=== PATIENT | male | born 1965 | race African-American/Black ===

== ENCOUNTER 2019-04-02 15:23 | Emergency (ER) | payer OTHER ==
[2019-04-02 15:43] VITALS: RESP 18; TEMP 98.3
--- NOTE | 2019-04-02 17:27 | XR ---
EXAMINATION TYPE: XR wrist complete RT, XR forearm RT DATE OF EXAM: 04/02/2019 CLINICAL HISTORY: pain TECHNIQUE: Frontal and lateral images of the right forearm are obtained. COMPARISON: None. FINDINGS: There is no acute fracture/dislocation evident. The joint spaces appear within normal limi ts. The overlying soft tissue appears unremarkable. IMPRESSION: There is no acute fracture or dislocation. ICD 10 NO FRACTURE, INITIAL EVALUATION EXAMINATION TYPE: XR wrist complete RT, XR forearm RT DATE OF EXAM: 04/02/2019 CLINICAL HISTORY: pain TECHNIQUE: Frontal, lateral and oblique images of the right wrist are obtained. COMPARISON: None. FINDINGS: There is no acute fracture/dislocation evident. Severe joint space narrowing radiocarpal joint space. Soft tissue swelling dorsum of the wrist. IMPRESSION: There is no acute fracture or dislocation seen. ICD 10 NO FRACTURE, INITIAL EVALUATION
--- NOTE | 2019-04-02 18:00 | ED ---
Upper Extremity HPI - General Chief Complaint: Extremity Injury, Upper Stated Complaint: Right arm swollen Time Seen by Provider: 04/02/19 17:08 Source: patient Mode of arrival: ambulatory Limitations: no limitations - History of Present Illness Initial Comments: Patient is a 54-year-old male presenting to emergency Department with complaints of right wrist pain after falling on it 2 days ago. Patient states he was moving some boxes and slipped on some ice and fell on the top of his right wrist. He denies any other injuries from this fall. He denies any previous surgeries injuries to the right wrist. He has no other complaints today. Upon arrival to the ER his vitals are stable. - Related Data Allergies Allergy/AdvReac Type Severity Reaction Status Date / Time No Known Allergies Allergy Verified 04/02/19 15:40 Review of Systems ROS Statement: Those systems with pertinent positive or pertinent negative responses have been documented in the HPI. ROS Other: All systems not noted in ROS Statement are negative. Past Medical History Past Medical History: No Reported History History of Any Multi-Drug Resistant Organisms: None Reported Past Surgical History: No Surgical Hx Reported Past Psychological History: No Psychological Hx Reported Smoking Status: Current every day smoker Past Alcohol Use History: None Reported Past Drug Use History: None Reported General Exam - General Exam Comments Initial Comments: GENERAL: Well-appearing, well-nourished and in no acute distress. HEAD: Atraumatic, normocephalic. EYES: Pupils equal round and reactive to light, extraocular movements intact, sclera anicteric, conjunctiva are normal. ENT: Moist mucous membranes. NECK: Normal range of motion, supple without lymphadenopathy or JVD. LUNGS: Breath sounds clear to auscultation bilaterally and equal. No wheezes rales or rhonchi. HEART: Regular rate and rhythm without murmurs, rubs or gallops. ABDOMEN: Soft, nontender, normoactive bowel sounds. No guarding, no rebound. No masses appreciated. EXTREMITIES: Tender to palpation over the head of the ulna, mild swelling present. Pain with supination, as well as wrist flexion and extension. Neurovascular intact. No pain of the right he and or right forearm other than the distal ulna area. No clubbing or cyanosis. NEUROLOGICAL: Normal speech, normal gait. PSYCH: Normal mood, normal affect. SKIN: Warm, Dry, normal turgor, no rashes or lesions noted. Limitations: no limitations Course Vital Signs 04/02/19 15:41 Temperature 98.3 F Pulse Rate 80 Respiratory 18 Rate Blood Pressure 141/81 O2 Sat by Pulse 98 Oximetry Medical Decision Making - Medical Decision Making Patient is a 54-year-old male presenting with right wrist pain after falling 2 days ago. X-rays reveal no acute fractures or dislocations were with appears to be an old injury over the head of the ulna. Patient was placed in a short arm splint. He will follow up with orthopedics. He is in agreement with this plan of care. Case discussed with Dr. Gee. Disposition Clinical Impression: Right wrist pain Disposition: HOME SELF-CARE Condition: Stable Instructions (If sedation given, give patient instructions): Wrist Injury (ED) Additional Instructions: Please return to the Emergency Department if symptoms worsen or any other concerns. May use ice on the wrist and ibuprofen for pain relief. Follow-up with orthopedics as discussed. Is patient prescribed a controlled substance at d/c from ED?: No Referrals: Anirudh Tellez MD [Primary Care Provider] - 1-2 days Trenton Gonzalez DO [Medical Doctor] - 1-2 days
[2019-04-02 18:13] VITALS: BP 106/81; PULSE 67
== END 2019-04-02 18:12 | disposition home or self-care (01) ==
LOC: EC 15:23
DX: M25.531 Pain in right wrist (principal); F17.200 Nicotine dependence, unspecified, uncomplicated; W00.0XXA Fall on same level due to ice and snow, initial encounter
CPT/HCPCS: 29125; 99283

== ENCOUNTER 2022-06-12 09:01 | Emergency (ER) | payer BC, OTHER ==
[2022-06-12] MEDS ORDERED: MORPHINE SULFATE 4 MG/ML SYRINGE IM STA (09:56)
--- NOTE | 2022-06-12 10:14 | ED ---
General Adult HPI - General Chief complaint: Neck Pain/Injury Stated complaint: neck pain Time Seen by Provider: 06/12/22 09:31 Source: patient Mode of arrival: ambulatory Limitations: no limitations - History of Present Illness Initial comments: Dictation was produced using [email or web address] dictation software. please excuse any grammatical, word or spelling errors. Chief Complaint: 57-year-old no presents with acute on chronic neck pain History of Present Illness: 57-year-old male presents emergency department for acute on chronic neck pain. Patient states he has that pain for one year. Has never had imaging on his neck. The last 3-4 days he has had worsening of his neck symptoms. Went to [facility]. The given an injection told that his symptoms were secondary to muscle spasms sent them home. Patient has any numbness and paresthesias to arms or legs. Denies any injury to the neck. The ROS documented in this emergency department record has been reviewed and confirmed by me. Those systems with pertinent positive or negative responses have been documented in the HPI. All other systems are other negative and/or noncontributory. - Related Data Previous Rx's Medication Instructions Recorded oxyCODONE-APAP 10-325MG [Percocet 1 tab PO Q4HR PRN 3 Days #18 tab 06/12/22 10-325 mg] Allergies Allergy/AdvReac Type Severity Reaction Status Date / Time No Known Allergies Allergy Verified 06/12/22 09:18 Review of Systems ROS Statement: Those systems with pertinent positive or pertinent negative responses have been documented in the HPI. ROS Other: All systems not noted in ROS Statement are negative. Past Medical History Past Medical History: Hypertension History of Any Multi-Drug Resistant Organisms: None Reported Past Surgical History: No Surgical Hx Reported Past Psychological History: No Psychological Hx Reported Smoking Status: Current every day smoker Past Alcohol Use History: Occasional Past Drug Use History: None Reported General Exam - General Exam Comments Initial Comments: PHYSICAL EXAM: General Impression: Alert and oriented x3, not in acute distress HEENT: Normocephalic atraumatic, extra-ocular movements intact, pupils equal and reactive to light bilaterally, mucous membranes moist, bogginess to the paraspinal muscular tissues at the lower cervical spine posteriorly Cardiovascular: Heart regular rate and rhythm Chest: Able to complete full sentences, no retractions, no tachypnea Musculoskeletal: Pulses present and equal in all extremities, no peripheral edema Motor: no focal deficits noted Neurological: CN II-XII grossly intact, no focal motor or sensory deficits noted Skin: Intact with no visualized rashes Psych: Normal affect and mood Limitations: no limitations Course Vital Signs 06/12/22 09:16 Temperature 98 F Pulse Rate 78 Respiratory 18 Rate Blood Pressure 174/118 O2 Sat by Pulse 96 Oximetry Medical Decision Making - Medical Decision Making Was pt. sent in by a medical professional or institution (DANAE [place]rona, RN ENT, urgent care, hospital, or [facility]...) When possible be specific @ -No Did you speak to anyone other than the patient for history (EMS, parent, family, police, friend...)? What history was obtained from this source @ -No Did you review nursing and triage notes (agree or disagree)? Why? @ -I reviewed and agree with nursing and triage notes Were old charts reviewed (outside hosp., previous admission, EMS record, old EKG, old radiological studies, urgent care reports/EKG's, [facility] records)? Report findings @ -No old charts were reviewed Differential Diagnosis (chest pain, altered mental status, abdominal pain women, abdominal pain men, vaginal bleeding, musculoskeletal, weakness, fever, dyspnea, syncope, headache, dizziness, GI bleed, back pain, seizure, CVA, palpatations, mental health)? @ -Neck strain, muscle spasm, cervical spinal fracture EKG interpreted by me (3pts min.). @ -None done X-rays interpreted by me (1pt min.). @ -None done CT interpreted by me (1pt min.). @ -Diffuse degenerative disc disease in the cervical spine U/S interpreted by me (1pt. min.). @ -None done What testing was considered but not performed or refused? (CT, X-rays, U/S, labs)? Why? @ -None What meds were considered but not given or refused? Why? @ -None Did you discuss the management of the patient with other professionals ( professionals i.e. DANAE [place], RN ENT, lab, RT, psych nurse, director social service, street light inspector, teacher, tax revenue officer, case worker)? Give summary @ -No Was smoking cessation discussed for >3mins.? @ -No Was critical care preformed (if so, how long)? @ -No Were there social determinants of health that impacted care today? How? (Homelessness, low income, unemployed, alcoholism, drug addiction, transportation, low edu. Level, literacy, decrease access to med. care, detention, rehab)? @ -No Was there de-escalation of care discussed even if they declined (Discuss DNR or withdrawal of care, Hospice)? DNR status @ -No What co-morbidities impacted this encounter? (DM, HTN, Smoking, COPD, CAD, Cancer, CVA, ARF, Chemo, Hep., AIDS, mental health diagnosis, sleep apnea, morbid obesity)? @ -None Was patient admitted / discharged? Hospital course, mention meds given and route, prescriptions, significant lab abnormalities, going to OR and other pertinent info. @ -57-year-old male presents emergency Department with acute on chronic neck pain. Patient has never had prior imaging. CT was ordered showing multilevel degenerative disc with very degrees of central canal stenosis and foraminal encroachment. Patient given intramuscular analgesia. Patient does not have any neurologic complaints or neurologic physical exam findings. Patient given referral to equipment validation specialist. Patient given prescription for oral analgesics. Undiagnosed new problem with uncertain prognosis? @ -No Drug Therapy requiring intensive monitoring for toxicity (Heparin, Nitro, Insulin, Cardizem)? @ -No Were any procedures done? @ -No Diagnosis/symptom? Acute, or Chronic, or Acute on Chronic? Uncomplicated (without systemic symptoms) or Complicated (systemic symptoms)? @ -1. Acute on Chronic cervical neck pain Side effects of treatment? @ -No Exacerbation, Progression, or Severe Exacerbation? @ -No Poses a threat to life or bodily function? How? (Chest pain, [place], [place], pneumonia, PE, COPD, DKA, ARF, appy, cholecystitis, CVA, Diverticulitis, Homicidal, Suicidal, threat to staff... and all critical care pts) @ -yes Disposition Clinical Impression: Neck pain Disposition: HOME SELF-CARE Condition: Fair Instructions (If sedation given, give patient instructions): Cervical Strain (ED) Prescriptions: oxyCODONE-APAP 10-325MG [Percocet 10-325 mg] 1 tab PO Q4HR PRN 3 Days #18 tab PRN Reason: Pain Is patient prescribed a controlled substance at d/c from ED?: Yes If prescribed controlled substance>3 days was MAPS reviewed?: Prescribed <3 Days Referrals: Zayda Rodriguez DO [Primary Care Provider] - 1-2 days Yohan Ceja DO [Doctor of Osteopathic Medicine] - 1-2 days Time of Disposition: 10:53
--- NOTE | 2022-06-12 10:40 | CT ---
EXAMINATION TYPE: CT cervical spine wo con DATE OF EXAM: 06/12/2022 COMPARISON: HISTORY: Neck pain and stiffness x1yr CT DLP: 409.[address] of the cervical spine was performed with bone and soft tissue window settings submitted . Coronal and sagittal reconstruction is obtained. There is normal alignment and prevertebral soft tissues. I do not see evidence for fracture or sublu xation. C2-3: Within normal limits C3-4: Vacuum disc noted. Posterior disc bulge. No evidence for obvious herniation or central stenosis . Degenerative change of the cervical apophyseal joints resulting in bilateral neural foraminal encro achment. C4-5: Mild degenerative disc space narrowing. Mild posterior disc bulge. No herniation protrusion or foraminal encroachment. C5-6: Severe disc desiccation. Posterior disc bulge greatest paracentrally and to the right with part ial encapsulating spur. Effacement ventral thecal sac with at least mild central stenosis. Right grea ter than left neural foraminal encroachment. Ventral spondylosis. C6-7: Vacuum disc seen. Moderate posterior disc bulge. Disc herniation difficult to exclude. At least mild central stenosis. Left greater than right neural foraminal encroachment. Ventral spondylosis. C7-T1: Within normal limits IMPRESSION: 1. Multilevel degenerative disc disease and varying degrees of central stenosis and foraminal encroac hment.
[2022-06-12 11:02] VITALS: BP 161/111; PULSE 81; RESP 16; TEMP 97.8
== END 2022-06-12 11:01 | disposition home or self-care (01) ==
LOC: EC 09:01
DX: M54.2 Cervicalgia (principal); I10 Essential (primary) hypertension; F17.200 Nicotine dependence, unspecified, uncomplicated
CPT/HCPCS: 72125; 99284; 96372; J2270

== ENCOUNTER → 2022-07-28 | Outpatient (CLI) | payer OTHER ==
--- NOTE | 2022-07-30 09:16 | MR ---
EXAMINATION TYPE: MR cervical spine wo con DATE OF EXAM: 07/28/2022 8:07 AM COMPARISON: NONE HISTORY: Neck pain x 6 months, no trauma. Multiplanar MultiSpin echo imaging of the cervical spine was performed. Comparison: none C2-C3: No evidence for degenerative disc disease. No disc bulge/herniation or protrusion. No Canal stenosis. Foramina are patent bilaterally. C3-C4: Moderate disc desiccation posterior disc bulge and effacement of the ventral thecal sac. There is constriction of the thecal sac with mild central stenosis. Degenerative change of the cervical ap ophyseal joints is ultimately in moderate bilateral neural foraminal encroachment. C4-C5: Moderate disc desiccation with mild posterior disc bulge. No evidence for herniation or centra l stenosis at this level. Degenerative change of the cervical apophyseal joints with right greater th an left foraminal encroachment. C5-C6: Severe disc desiccation with subligamentous disc herniation. Effacement ventral thecal sac wit h moderate central stenosis and changes of compressive myelopathy. Moderate to severe bilateral neura l foraminal encroachment. C6-C7: Severe disc desiccation with subligamentous disc herniation. Effacement ventral thecal sac wit h moderate central stenosis and changes of compressive myelopathy. Moderate to severe bilateral neura l foraminal encroachment. C7-T1: No evidence for degenerative disc disease. No disc bulge/herniation or protrusion. No Canal stenosis. Foramina are patent bilaterally. Cervical segments are intact. There is normal alignment. Cervical spinal cord is of normal signal. Craniovertebral junction relationships are within normal limits. Degenerative endplate marrow change s. Ventral spondylosis. IMPRESSION: 1. Multilevel degenerative disc disease with multilevel central stenosis and foraminal encroachment a s outlined above. 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
== END | disposition home or self-care (01) ==
LOC: RADMRIMAIN 06:20
PROVIDERS: ATTEND Orthopaedic Surgery Orthopaedic Surgery of the Spine
DX: M47.812 Spondylosis without myelopathy or radiculopathy, cervical region (principal); M50.322 Other cervical disc degeneration at C5-C6 level; M25.78 Osteophyte, vertebrae; F17.218 Nicotine dependence, cigarettes, with other nicotine-induced disorders; M99.71 Connective tissue and disc stenosis of intervertebral foramina of cervical region
CPT/HCPCS: 72141

== ENCOUNTER 2023-07-05 10:33 | Emergency (ER) | payer OTHER ==
--- NOTE | 2023-07-05 10:47 | ED ---
Neck Injury/Pain HPI - General Chief Complaint: Neck Pain/Injury Stated Complaint: Neck pain Time Seen by Provider: 07/05/23 10:48 Source: patient, RN notes reviewed Mode of arrival: ambulatory Limitations: no limitations - History of Present Illness Initial Comments: This is a 58-year-old male with a history of hypertension who presents to the emergency department chief complaint of cervical neck pain over the last 2 weeks. The pain is worse on the left-hand side and with full neck flexion. He denies upper motor neuron deficits such as decrease in muscle strength, parasthesias, weakness, headaches. Denies shortness of breath, chest pain or pressure, palpitations, dizziness, lightheadedness, fatigue. He denies a history of cervical neck trauma, motor vehicle accidents, or previous surgical operations. Patient states that he had symptoms similar to this episode a year ago where he presented to the emergency department and he was given a p rescription for pain medication and referral to a migration specialist. States that the pain specialist performed a injection to his neck and has not followed up since due to lack of health insurance after. - Related Data Previous Rx's Medication Instructions Recorded oxyCODONE-APAP 10-325MG [Percocet 1 tab PO Q4HR PRN 3 Days #18 tab 06/12/22 10-325 mg] Cyclobenzaprine [Flexeril] 10 mg PO TID PRN #15 tab 07/05/23 HYDROcodone/APAP 10-325MG [[place] 1 tab PO Q6HR PRN 3 Days #12 tab 07/05/23 10-325] Allergies Allergy/AdvReac Type Severity Reaction Status Date / Time No Known Allergies Allergy Verified 07/05/23 10:41 Review of Systems ROS Statement: Those systems with pertinent positive or pertinent negative responses have been documented in the HPI. ROS Other: All systems not noted in ROS Statement are negative. Past Medical History Past Medical History: Hypertension History of Any Multi-Drug Resistant Organisms: None Reported Past Surgical History: No Surgical Hx Reported Past Psychological History: No Psychological Hx Reported Smoking Status: Current every day smoker Past Alcohol Use History: Occasional Past Drug Use History: None Reported General Exam Limitations: no limitations General appearance: alert, in no apparent distress Head exam: Present: atraumatic, normocephalic, normal inspection Eye exam: Present: normal appearance, PERRL, EOMI. Absent: scleral icterus, conjunctival injection, periorbital swelling ENT exam: Present: normal exam, mucous membranes moist Neck exam: Present: tenderness, other (unable to assess full ROM due to pain, pain worse with rotation). Absent: normal inspection, full ROM Respiratory exam: Present: normal lung sounds bilaterally. Absent: respiratory distress, wheezes, rales, rhonchi, stridor Cardiovascular Exam: Present: regular rate, normal rhythm, normal heart sounds. Absent: systolic murmur, diastolic murmur, rubs, gallop, clicks GI/Abdominal exam: Present: soft, normal bowel sounds. Absent: distended, tenderness, guarding, rebound, rigid Extremities exam: Present: normal inspection, full ROM, normal capillary refill. Absent: tenderness, pedal edema, joint swelling, calf tenderness Back exam: Present: normal inspection Neurological exam: Present: alert, oriented X3, CN II-XII intact Psychiatric exam: Present: normal affect, normal mood Skin exam: Present: warm, dry, intact, normal color. Absent: rash Course Vital Signs 07/05/23 07/05/23 10:35 11:41 Temperature 98.4 F Pulse Rate 95 72 Respiratory 18 18 Rate Blood Pressure 155/116 128/86 O2 Sat by Pulse 98 94 L Oximetry Medical Decision Making - Medical Decision Making Was pt. sent in by a medical professional or institution ([facility]NAE [place], INSTRUCTOR CREELER, urgent care, hospital, or [facility]...) When possible be specific @ -No Did you speak to anyone other than the patient for history (EMS, parent, family, police, friend...)? What history was obtained from this source @ -No Did you review nursing and triage notes (agree or disagree)? Why? @ -I reviewed and agree with nursing and triage notes Were old charts reviewed (outside hosp., previous admission, EMS record, old EKG, old radiological studies, urgent care reports/EKG's, [facility] records)? Report findings @Patient's previous visit from May 2022 reviewed where he presented with similar symptoms. CT of the neck was ordered at this time which revealed disc degeneration and changes of the cervical spine with no red flag findings. Differential Diagnosis (chest pain, altered mental status, abdominal pain women, abdominal pain men, vaginal bleeding, weakness, fever, dyspnea, syncope, headache, dizziness, GI bleed, back pain, seizure, CVA, palpatations, mental health, musculoskeletal)? @ -Differential Musculoskeletal Muscular strain, contusion, ligament sprain, fracture, arthritis, septic arthritis, bursitis, cellulitis, muscle spasm, nerve compression, DVT, arterial occlusion, herpes zoster, electrolyte abnormality, tumor.... This is not meant to be in all inclusive list EKG interpreted by me (3pts min.). @ -None X-rays interpreted by me (1pt min.). @ -X-rays ordered of the left foot and ankle reveal a small lucency through the base of the fifth metatarsal possible avulsion fracture. X-ray of the C-spine reveals no obvious malalignment, moderate to severe disc/endplate degenerative changes at C5-C6 and C6-C7. Moderate bony neuroforaminal narrowing of both sides at C3-C4. CT interpreted by me (1pt min.). @ -None done U/S interpreted by me (1pt. min.). @ -None done What testing was considered but not performed or refused? (CT, X-rays, U/S, labs)? Why? @ -None What meds were considered but not given or refused? Why? @ -None Did you discuss the management of the patient with other professionals (professionals i.e. , PA, INSTRUCTOR CREELER, lab, RT, psych nurse, professor of social work, custom seamstress, teacher, penal officer, case filler)? Give summary @ -No Was smoking cessation discussed for >3mins.? @ -No Was critical care preformed (if so, how long)? @ -No Were there social determinants of health that impacted care today? How? (Homelessness, low income, unemployed, alcoholism, drug addiction, transportation, low edu. Level, literacy, decrease access to med. care, penitentiary, rehab)? @ -No Was there de-escalation of care discussed even if they declined (Discuss DNR or withdrawal of care, Hospice)? DNR status @ -No What co-morbidities impacted this encounter? (DM, HTN, Smoking, COPD, CAD, Cancer, CVA, ARF, Chemo, Hep., AIDS, mental health diagnosis, sleep apnea, morbid obesity)? @ -None Was patient admitted / discharged? Hospital course, mention meds given and route, prescriptions, significant lab abnormalities, going to OR and other pertinent info. @ -8-year-old male with cervical neck pain. On physical examination there are no neurological deficits of the upper extremities or loss of shoulder function. Patient is neurovascularly intact. Question with patient at bedside, states that he followed up with a migration specialist last year after this first incident where he was provided with a shot into his neck. States that he has not followed up afterwards due to losing his health insurance. This time patient will be provided with muscle relaxer and a x-ray will be ordered to determine if there is any acute deficits. Patient is agree with his plan. On reevaluation states that his neck is still painful and is requesting further medication therefore Dilaudid ordered. Reviewed patient's x-ray findings with him that there are no acute changes compared to previous imaging. Recommend patient follows up with his migration specialist for further evaluation and possible repeat injection of the neck. Patient will be provided with outpatient prescription for muscle relaxer and pain medication as needed. All questions answered at bedside. Patient stable for discharge. Strict return parameters discussed with the patient. Plan discussed with Dr. Angeles Undiagnosed new problem with uncertain prognosis? @ -No Drug Therapy requiring intensive monitoring for toxicity (Heparin, Nitro, Insulin, Cardizem)? @ -No Were any procedures done? @ -No Diagnosis/symptom? @ -cervical neck pain, cervical neck strain Acute, or Chronic, or Acute on Chronic? @ -Acute Uncomplicated (without systemic symptoms) or Complicated (systemic symptoms)? @ -uncomplicated Side effects of treatment? @ -No Exacerbation, Progression, or Severe Exacerbation? @ -No Poses a threat to life or bodily function? How? (Chest pain, [place], [place], pneumonia, PE, COPD, DKA, ARF, appy, cholecystitis, CVA, Diverticulitis, Homicidal, Suicidal, threat to staff... and all critical care pts) @ -No Disposition Clinical Impression: Cervical pain (neck), Strain of neck Narrative: Please return to the Emergency Department if symptoms worsen or any other concerns. Follow-up with orthopedic migration specialist for further evaluation. Take pain medication with relaxers as needed. Disposition: HOME SELF-CARE Condition: Good Instructions (If sedation given, give patient instructions): Cervical Strain (ED) Prescriptions: Cyclobenzaprine [Flexeril] 10 mg PO TID PRN #15 tab PRN Reason: Muscle Spasm HYDROcodone/APAP 10-325MG [[place] 10-325] 1 tab PO Q6HR PRN 3 Days #12 tab PRN Reason: Pain Is patient prescribed a controlled substance at d/c from ED?: Yes When asked, does pt state using other controlled substances?: No If prescribed controlled substance>3 days was MAPS reviewed?: Prescribed <3 Days Referrals: Zayda Rodriguez DO [Primary Care Provider] - 1-2 days Time of Disposition: 12:34
[2023-07-05 11:16] VITALS: RESP 18; TEMP 98.4
[2023-07-05] MEDS: ORPHENADRINE 30 MG/ML 2 ML VIAL IM STA (11:43)
[2023-07-05 12:10] VITALS: BP 128/86; PULSE 72
--- NOTE | 2023-07-05 12:23 | XR ---
EXAMINATION TYPE: XR cervical spine comp DATE OF EXAM: 07/05/2023 COMPARISON: None HISTORY: 58-year-old male with neck pain, muscle spasm TECHNIQUE: 6 views FINDINGS: Patient's neck is flexed. No predental space widening or prevertebral soft tissue swelling. Moderate to severe disc/endplate degenerative change C5-C6 and C6-C7 with bulky anterior and plate spondylosis . Patient's shoulders partially obscure the cervicothoracic junction. No obvious malalignment on the swimmer's view. Normal odontoid view. Variable mild bony neuroforaminal narrowing throughout on both sides. More moderate on both sides at C3-C4. IMPRESSION: 1. The patient's neck is flexed. No obvious malalignment though there is some limitation in assessmen t of the cervicothoracic junction. 2. There may be moderate to severe disc/endplate degenerative change at C5-C6 and C6-C7. 3. No prevertebral soft tissue swelling. 4. Moderate bony neuroforaminal narrowing on both sides at C3-C4.
== END 2023-07-05 12:48 | disposition home or self-care (01) ==
LOC: EC 10:33
DX: S16.1XXA Strain of muscle, fascia and tendon at neck level, initial encounter (principal); M48.02 Spinal stenosis, cervical region; F17.200 Nicotine dependence, unspecified, uncomplicated; X58.XXXA Exposure to other specified factors, initial encounter
CPT/HCPCS: 72050; 99284; 96372; J2360

== ENCOUNTER 2024-01-07 11:59 | Emergency (ER) | payer OTHER ==
[2024-01-07 12:11] VITALS: BP 140/93; PULSE 92; RESP 18; TEMP 97.3
--- NOTE | 2024-01-07 12:26 | ED ---
General Adult HPI - General Chief complaint: Dental/Oral Stated complaint: Oral infection, swelling Time Seen by Provider: 01/07/24 12:15 Source: patient, RN notes reviewed, old records reviewed Mode of arrival: ambulatory Limitations: no limitations - History of Present Illness Initial comments: 58 yo male presenting for evaluation of facial swelling and drainage from the right upper mandible. Patient states that just prior to arrival he noted some drainage with blood from the previous infected tooth. Denies history of diabetes. He denies fever. He was concerned due to the bleeding. - Related Data Previous Rx's Medication Instructions Recorded oxyCODONE-APAP 10-325MG [Percocet 1 tab PO Q4HR PRN 3 Days #18 tab 06/12/22 10-325 mg] Cyclobenzaprine [Flexeril] 10 mg PO TID PRN #15 tab 07/05/23 HYDROcodone/APAP 10-325MG [[place] 1 tab PO Q6HR PRN 3 Days #12 tab 07/05/23 10-325] Amoxic-Pot Clav 875-125Mg 1 tab PO Q12HR 10 Days #20 tab 01/07/24 [Augmentin 875-125] Allergies Allergy/AdvReac Type Severity Reaction Status Date / Time No Known Allergies Allergy Verified 07/05/23 10:41 Review of Systems ROS Statement: Those systems with pertinent positive or pertinent negative responses have been documented in the HPI. ROS Other: All systems not noted in ROS Statement are negative. Past Medical History Past Medical History: Hypertension History of Any Multi-Drug Resistant Organisms: None Reported Past Surgical History: No Surgical Hx Reported Past Psychological History: No Psychological Hx Reported Smoking Status: Current every day smoker Past Alcohol Use History: Occasional Past Drug Use History: None Reported General Exam Limitations: no limitations General appearance: alert, in no apparent distress Head exam: Present: atraumatic, normocephalic Eye exam: Present: normal appearance, PERRL ENT exam: Present: other (Facial swelling on the right, poor dentition, draining dental abscess right premolar) Respiratory exam: Present: normal lung sounds bilaterally. Absent: respiratory distress, wheezes Cardiovascular Exam: Present: regular rate, normal rhythm GI/Abdominal exam: Present: soft. Absent: distended, tenderness Extremities exam: Present: normal inspection, normal capillary refill Neurological exam: Present: alert, oriented X3 Psychiatric exam: Present: normal affect, normal mood Course Vital Signs 01/07/24 12:10 Temperature 97.3 F L Pulse Rate 92 Respiratory 18 Rate Blood Pressure 140/93 O2 Sat by Pulse 98 Oximetry Medical Decision Making - Medical Decision Making Was pt. sent in by a medical professional or institution ([facility]E [place], ORDER MAKE UP CLERK, urgent care, hospital, or group home...) When possible be specific @ -No Did you speak to anyone other than the patient for history (EMS, parent, family, police, friend...)? What history was obtained from this source @ -No Did you review nursing and triage notes (agree or disagree)? Why? @ -I reviewed and agree with nursing and triage notes Were old charts reviewed (outside hosp., previous admission, EMS record, old EKG, old radiological studies, urgent care reports/EKG's, group home records)? Report findings @ -No old charts were reviewed Differential Diagnosis: facial cellulitis, dental abscess, this EKG interpreted by me (3pts min.). @ -As above X-rays interpreted by me (1pt min.). @ -None done CT interpreted by me (1pt min.). @ -None done U/S interpreted by me (1pt. min.). @ -None done What testing was considered but not performed or refused? (CT, X-rays, U/S, labs)? Why? @ -None What meds were considered but not given or refused? Why? @ -None Did you discuss the management of the patient with other professionals (professionals i.e. DANAE [place], ORDER MAKE UP CLERK, lab, RT, psych nurse, social services manager, fibre cement moulder, teacher, juvenile probation officer, case preparer and liner)? Give summary @ -No Was smoking cessation discussed for >3mins.? @ -No Was critical care preformed (if so, how long)? @ -No Were there social determinants of health that impacted care today? How? (Homelessness, low income, unemployed, alcoholism, drug addiction, transportation, low edu. Level, literacy, decrease access to med. care, prison, rehab)? @ -No Was there de-escalation of care discussed even if they declined (Discuss DNR or withdrawal of care, Hospice)? DNR status @ -No What co-morbidities impacted this encounter? (DM, HTN, Smoking, COPD, CAD, Cancer, CVA, ARF, Chemo, Hep., AIDS, mental health diagnosis, sleep apnea, morbid obesity)? @ -None Was patient admitted / discharged? Hospital course, mention meds given and route, prescriptions, significant lab abnormalities, going to OR and other pertinent info. @ -[58-year-old male presenting for evaluation of draining dental abscess. This is spontaneously draining. Patient is prescribed antibiotics and to follow-up with his dentist. Undiagnosed new problem with uncertain prognosis? @ -No Drug Therapy requiring intensive monitoring for toxicity (Heparin, Nitro, Insulin, Cardizem)? @ -No Were any procedures done? @ -No Diagnosis/symptom? @Dental Abscess Acute, or Chronic, or Acute on Chronic? @ -acute Uncomplicated (without systemic symptoms) or Complicated (systemic symptoms)? @ -Default Side effects of treatment? @ -No Exacerbation, Progression, or Severe Exacerbation? @ -No Poses a threat to life or bodily function? How? (Chest pain, [place], [place], pneumonia, PE, COPD, DKA, ARF, appy, cholecystitis, CVA, Diverticulitis, Homicidal, Suicidal, threat to staff... and all critical care pts) @ -No Disposition Clinical Impression: Dental abscess Disposition: HOME SELF-CARE Condition: Fair Instructions (If sedation given, give patient instructions): Dental Abscess (ED) Additional Instructions: Follow-up with your dentist. Prescriptions: Amoxic-Pot Clav 875-125Mg [Augmentin 875-125] 1 tab PO Q12HR 10 Days #20 tab Is patient prescribed a controlled substance at d/c from ED?: No Referrals: Zayda Rodriguez DO [Primary Care Provider] - 1-2 days Time of Disposition: 12:25
== END 2024-01-07 12:43 | disposition home or self-care (01) ==
LOC: EC 11:59
DX: K04.7 Periapical abscess without sinus (principal); F17.200 Nicotine dependence, unspecified, uncomplicated
CPT/HCPCS: 99282